=== PATIENT | female | born 1960 | race Caucasian/White ===

== ENCOUNTER → 2016-07-29 | Outpatient (CLI) | payer OTHER ==
[~2016-07-29] MED LIST: ALBU1AER9 INH; CETI10TA10 PO; CRG625 PO; CYAN10004 PO; GABA-113 PO; HYDR-4079 PO; INSDGI SC; INSUINJ14 SC; METF-384 PO; PRAV20TA PO; VLM5 PO
[2016-07-29 13:29] LABS: THYROID STIMULATING HORMONE 0.481 uIu/ml (0.300-4.500)
== END | disposition home or self-care (01) ==
LOC: C.LABPBG 08:32
PROVIDERS: ATTEND Internal Medicine Endocrinology, Diabetes & Metabolism
DX: E11.65 Type 2 diabetes mellitus with hyperglycemia (principal)

== ENCOUNTER → 2017-01-16 | Outpatient (CLI) | payer OTHER, BC ==
--- NOTE | 2017-01-16 13:21 | MAMMOGRAPHY REPORT ---
BILATERAL DIGITAL SCREENING MAMMOGRAM TOMOSYNTHESIS WITH CAD: 01/16/2017 CLINICAL HISTORY: Routine screening. Patient has no complaints. TECHNIQUE: Breast tomosynthesis in addition to standard 2D mammography was performed. Current study was also evaluated with a Computer Aided Detection (CAD) system. COMPARISON: Comparison is made to exams dated: 01/16/2016 mammogram, 12/19/2014 mammogram, 10/03/2013 jessi mogram, 09/30/2012 mammogram, 09/27/2012 mammogram, and 09/25/2011 mammogram - [facility]. BREAST COMPOSITION: There are scattered areas of fibroglandular density in both breasts. FINDINGS: No suspicious masses, calcifications, or areas of architectural distortion are noted in ei ther breast. There has been no significant interval change compared to prior exams. IMPRESSION: ACR BI-RADS CATEGORY 1: NEGATIVE There is no mammographic evidence of malignancy. A 1 year screening mammogram is recommended. The pa tient will receive written notification of the results. Approximately 10% of breast cancers are not detected with mammography. A negative mammographic report should not delay biopsy if a clinically suggestive mass is present. Gisele Vazquez M.D. ah/:01/16/2017 13:12:18 Lunchroom Supervisor: Christelle HALLMAN(Akiko)(M), [facility] letter sent: Normal 1/2 BI-RADS Code: ACR BI-RADS Category 1: Negative
== END | disposition home or self-care (01) ==
LOC: C.MAMM 09:45
PROVIDERS: ATTEND Family Medicine
DX: Z12.31 Encounter for screening mammogram for malignant neoplasm of breast (principal)

== ENCOUNTER → 2017-04-29 | Outpatient (CLI) | payer OTHER ==
[2017-04-29 12:10] LABS: ESTIMATED AVERAGE GLUCOSE 203 mg/dl; HA1C FLAG Normal (Normal)
[2017-04-29 12:22] LABS: ALT/SGPT 27 U/L (12-78); BLOOD UREA NITROGEN 15 mg/dl (7-18); BUN/CREATININE RATIO 22.9 (10-20); CALCIUM 8.8 mg/dl (8.5-10.1); CARBON DIOXIDE 24 mmol/L (21-32); CHLORIDE 104 mmol/L (98-107); CREATININE 0.65 mg/dl (0.60-1.20); GLUCOSE 298 mg/dl (70-99); SODIUM 138 mmol/L (136-145)
[2017-04-29 12:26] LABS: CHOLESTEROL 186 mg/dl (0-200); CHOLESTEROL/HDL RATIO 3.4; HDL CHOLESTEROL 55 mg/dl; LDL CHOLESTEROL CALCULATED 114 mg/dl; TRIGLYCERIDES 83 mg/dl (0-150); VERY LOW DENSITY LIPOPROT CALC 17 mg/dl
== END | disposition home or self-care (01) ==
LOC: C.LABPBG 08:21
PROVIDERS: ATTEND Family Medicine
DX: E78.5 Hyperlipidemia, unspecified (principal); I10 Essential (primary) hypertension; E11.9 Type 2 diabetes mellitus without complications

== ENCOUNTER → 2017-09-16 | Outpatient (CLI) | payer OTHER ==
[2017-09-16 13:57] LABS: HEMOGLOBIN A1C 7.7 % (4.5-5.6)
== END | disposition home or self-care (01) ==
LOC: C.LABPBG 08:28
PROVIDERS: ATTEND Family Medicine
DX: E11.9 Type 2 diabetes mellitus without complications (principal)

== ENCOUNTER → 2018-01-26 | Outpatient (CLI) | payer OTHER ==
--- NOTE | 2018-01-26 14:56 | MAMMOGRAPHY REPORT ---
BILATERAL DIGITAL SCREENING MAMMOGRAM TOMOSYNTHESIS WITH CAD: 01/26/2018 CLINICAL HISTORY: Routine screening. Patient has no complaints. TECHNIQUE: The study was acquired using full field digital technology and interpreted from soft copy. Breast tomosynthesis in addition to standard 2D mammography was performed. Current study was also ev aluated with a Computer Aided Detection (CAD) system. COMPARISON: Comparison is made to exams dated: 01/16/2017 mammogram, 01/16/2016 mammogram, 12/19/2014 mamm ogram, 10/03/2013 mammogram, 09/30/2012 mammogram, and 09/27/2012 mammogram - [facility]. BREAST COMPOSITION: There are scattered areas of fibroglandular density in both breasts. FINDINGS: There are stable nodular asymmetries in both breasts. Stable round and punctate calcificat ions bilaterally, most numerous in the left upper outer quadrant. No new suspicious mass, architectur al distortion or cluster of microcalcifications is seen. IMPRESSION: ACR BI-RADS CATEGORY 1: NEGATIVE There is no mammographic evidence of malignancy. A 1 year screening mammogram is recommended.( 019) The patient will receive written notification of the results. Some breast cancers are not detected with mammography. A negative mammographic report should not christian y biopsy if a clinically suggestive mass is present. Yamilet Connolly M.D. ay/:01/26/2018 08:19:33 Hospice Educator: RT Godfrey(Akiko)(M), [facility] letter sent: Normal 1/2 BI-RADS Code: ACR BI-RADS Category 1: Negative
== END | disposition home or self-care (01) ==
LOC: C.MAMM 07:35
PROVIDERS: ATTEND Physician Assistant
DX: Z12.31 Encounter for screening mammogram for malignant neoplasm of breast (principal)

== ENCOUNTER 2022-11-26 13:34 | Observation (INO) ==
[2022-11-26] MEDS ORDERED: ENOXAPARIN 100 MG/1ML SYR SQ ONE (14:17)
--- NOTE | 2022-11-26 14:19 | Emergency Department Note ---
Impression & Plan Pulmonary embolism, DVT (deep venous thrombosis) ED Provider Note NAME: BERTHA WEAVER AGE: 62 SEX: F : 1960 ARRIVES VIA: Walk-In INFORMANT: Patient, ED PROVIDER(S): Ron Avila DO CHIEF COMPLAINT: Pulmonary embolism HPI: The patient is a 62-year-old female who presented to the emergency department for an evaluation of pulmonary embolism. The patient had a history of an injury recently. She also had an outpatient CAT scan of her abdomen that showed some retroperitoneal lymph nodes. This was being reassessed today with outpatient CAT scans. Her outpatient CAT scan showed bilateral pulmonary embolism so she was sent to the emergency department by her primary care physician. The patient states she has no chest pain. She denies having any weakness or difficulty breathing. She denies having any near syncope. She does not have a history of venous thromboembolic disease. Patient does not take any blood thinners. She notices no headaches or GI bleeding. She states her right knee does still hurt her after an injury recently. She denies having any calf tenderness or leg swelling ROS: See above HPI for pertinent positives & negatives. A total of 10 systems reviewed and were otherwise negative. PAST MEDICAL HISTORY: See Below PAST SURGICAL HISTORY: See Below FAMILY HISTORY: See Below SOCIAL HISTORY: See Below HOME MEDICATIONS: See Below ALLERGIES: See Below VITALS: See Below PHYSICAL EXAMINATION: GENERAL: Patient is awake alert in no acute distress patient is resting comfortably and showing no signs of anxiety EYES: The conjunctivae are clear. The pupils are round and reactive. EARS, NOSE, MOUTH AND THROAT: The nose is without any evidence of any deformity. Mucous membranes are moist. Tongue is midline. NECK: The neck is nontender and supple. RESPIRATORY: Normal respiratory effort is noted there is no evidence of wheezing rhonchi or rales CARDIOVASCULAR: Regular rate and rhythm noted there no murmurs rubs or gallops normal S1 normal S2. GASTROINTESTINAL: The abdomen is soft. Abdomen is nontender. MUSCULOSKELETAL/EXTREMITIES: There is no evidence of gross deformity full range of motion is noted in the hips and shoulders. SKIN: There is no obvious evidence of any rash. There are no petechiae, pallor or cyanosis noted. NEUROLOGIC: Patient is awake alert and oriented x3 MEDICAL DECISION MAKING: The patient is a 62-year-old female who presented to the emergency department for an evaluation of pulmonary embolism that was diagnosed on an outpatient CAT scan. The patient was not tachycardic or hypoxic but she was found to have a significant clot burden on CT and was also found to have a DVT. She recently robb d an injury to her leg. She was immobilized. This is likely the cause of the DVT. The patient was started on Lovenox in the emergency department. The patient was reevaluated multiple times. [facility] have agreed to evaluate the patient in the emergency department for further management and disposition. Triage Nursing notes reviewed. Prior medical records reviewed Vital Signs: reviewed and remarkable for elevated blood pressure. Differential diagnosis: Reactive airway disease, pneumonia, pneumothorax, COPD, CHF, infections, card iac ischemia, pulmonary embolism, musculoskeletal, gastrointestinal, as well as other pathologies. ER treatment provided: See below Diagnostics interpreted by me: ECG: EKG was obtained in the emergency department. My interpretation is normal sinus rhythm at 82 bpm. There is no ectopy. Nonspecific ST depressions were noted. This was compared to a tracing from January 23, 2020. No changes were noted Cardiac Monitoring: An order was placed for continuous cardiac monitoring. The monitor shows a rate of 78 bpm with sinus rhythm. Laboratory studies: As stated above and show below. Imaging studies: See below. Radiographic imaging was reviewed by myself Consultation(s): I discussed this case with Dr. Fernandez who is [facility]. ED COURSE: Procedures: none Critical Care: I have personally spent greater than 35 minutes of critical care time in the direct management of this patient. This includes bedside care, interpretation of diagnostic studies, and testing, discussion with consultants, patient, and family members, and other required patient management activities. This 35 minutes is in excess of all separately billable procedures. Past Med/Surg History Medical History Diabetes mellitus, type 2 IDDM Diverticulosis of colon (without mention of hemorrhage) (12/11/12) Encounter for screening for malignant neoplasm of colon Encounter for screening for malignant neoplasm of rectum Goiter Headache History of difficult intubation C6 Corpectomy, C5-C7 fusion= 05/28/15= Glidescope #4, ETT 7.0 at [facility] (pt denies) HLD (hyperlipidemia) Kidney stones Leiomyoma of body of uterus (04/21/13) Multiple thyroid nodules Obesity Reactive airway disease allergy related. Right ureteral calculus Subclinical hyperthyroidism Surgical History Fusion of spine C6 CORPECTOMY, C5-C7 FUSION History of colonoscopy History of laparoscopy History of oral surgery History of repair of rotator cuff Right S/P tendon repair bicep tendon right (2019) Family History Father Diabetes Hypertension Lung disease Kidney disease Mother Hypertension Hypothyroidism Cancer small cell of the bone Brother Sleep apnea Sister No problems noted. Son Asthma Mental disorder Other Myocardial infarction No pertinent family history Denies family history of Ovarian cancer Prostate cancer Breast cancer Colorectal cancer Social History Smoking Status: Never smoker Tobacco Type: Cigarettes Age Started Using Tobacco: 16; Age Quit Using Tobacco: 40; Cigarettes Per Day: A COUPLE A DAY IF THAT; Second Hand Exposure: No; Do You Dip or Chew Tobacco: No; Hx Alcohol Use: Yes Alcohol type: beer Alcohol Intake Frequency: Monthly or Less Hx Substance Use: No Preferred Language: Hebrew Communication Ability: Effective Visual Impairment: No Limitations Hearing Ability: Normal Decorating And Assembly Supervisor Required: No Beliefs That Will Affect Care: None marital status: Current Living Situation: Family current occupational status: employed 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, [employer] How many Children do You have: 1 Other Information That Helps Us Care for You: No Feels Safe at Home: Yes Safety Concerns: Feels Safe At This Time Childhood Exposure to Second-Hand Smoke: Yes Diet: regular caffeine: Yes during the past year weight has: decreased > 10 lbs Dental Care, Regularly: Yes Physical Activity Frequency: 3-4 Times per Week Seatbelt Use: always Sunscreen Use: Yes Assistive Devices: None Allergies Allergies Allergy/AdvReac Type Severity Reaction Status Date / Time benzoin Allergy Intermediate BENZOIN Verified 11/26/22 16:59 TINCTURE-HIVES amoxicillin Allergy Unknown PRURITIS Verified 11/26/22 16:59 doxycycline AdvReac Severe severe Verified 11/26/22 16:59 nausea/vomiting oxycodone AdvReac Severe SEVERE Verified 11/26/22 16:59 NAUSEA, BONDING SUPERVISOR symptoms tetracycline AdvReac Severe DOXYCYCLINE-INTRACTABLE Verified 11/26/22 16:59 VOMITING, SEVERE ABD PAIN atorvastatin [From Lipitor] AdvReac Intermediate Myalgia Verified 11/26/22 16:59 lisinopril AdvReac Intermediate TACHYCARDIA Verified 11/26/22 16:59 Baldemar Adhesive AdvReac Unknown Itchy Uncoded 11/26/22 16:59 Home Meds Home Medications Medication Instructions Recorded Confirmed cetirizine 10 mg tablet (Zyrtec) 10 mg PO DAILY PRN SEASONAL 06/10/18 11/26/22 ALLERGIES mecobalamin (vitamin B12) 1,000 2,000 mcg PO 3XWK 12/13/19 11/26/22 mcg chewable tablet acetaminophen 650 mg 1,300 mg PO TID PRN Pain 01/05/20 11/26/22 tablet,extended release (Tylenol Arthritis Pain) meloxicam 15 mg tablet 15 mg PO DAILY PRN Pain 08/24/20 11/26/22 L.acidoph, paracasei,B. lactis 10 10 cell PO DAILY PRN Only take 09/23/21 11/26/22 billion cell capsule (Digestive when on antibiotics Advantage Advanced Probiotic) cholecalciferol (vitamin D3) 50 50 mcg PO .COMPLEX 03/03/22 11/26/22 mcg (2,000 unit) capsule tamsulosin 0.4 mg capsule 0.4 mg PO HS PRN Kidney Stones 03/03/22 11/26/22 insulin glargine 100 unit/mL (3 50 unit subcut HS 06/18/22 11/26/22 mL) subcutaneous pen (Basaglar KwikPen U-100 Insulin) Previous Rx's Medication Instructions Recorded OneTouch Delica Lancets 33 gauge #400 ea 07/26/19 (lancets) Dexcom G6 [employer] Rep (blood-glucose #1 ea 04/23/20 meter,continuous) Dexcom G6 Sensor (blood-glucose #9 ea 04/23/20 sensor) Dexcom G6 Transmitter #1 ea 04/23/20 (blood-glucose transmitter) cyclobenzaprine 10 mg tablet 10 mg PO TID PRN muscle spasm #90 06/13/20 tabs BD Ultra-Fine Natalie Pen Needle 32 #400 ea 01/07/21 gauge x 5/32" (pen needle, diabetic) OneTouch Verio test strips (blood #400 ea 01/07/21 sugar diagnostic) metformin 1,000 mg tablet 1,000 mg PO BID 90 days #180 tabs 09/23/21 hyoscyamine sulfate 0.125 mg 0.125 mg PO QID PRN abdominal pain 12/27/21 tablet (Levsin) #360 tabs lovastatin 20 mg tablet 20 mg PO 3XWK #36 tabs 06/13/22 insulin aspart U-100 100 unit/mL See Rx Instructions subcut 06/18/22 (3 mL) subcutaneous pen (Novolog .COMPLEX 90 days #6 Boxes FlexPen U-100 Insulin aspart) methimazole 5 mg tablet 10 mg PO DAILY 90 days #180 tabs 09/04/22 tirzepatide 12.5 mg/0.5 mL 12.5 mg (0.5 mL) subcut Q7D #2 mL 11/12/22 subcutaneous pen injector Results & Data (ED) Vital Signs Vital Signs - 24 hr 11/26/22 13:47 11/26/22 14:18 11/26/22 14:19 Temperature 36.6 C Temperature Source Temporal Artery Scan Pulse Rate 92 H 92 H Pulse Rate [Apical] 94 H Respiratory Rate 20 20 26 H Respiratory Effort / Characteristics Non-Labored Non-Labored Spontaneous Respiratory Depth Normal Respiratory Pattern Regular Blood Pressure 204/110 H Blood Pressure [Right Arm] 171/102 H Blood Pressure Mean 141 Blood Pressure Mean [Right Arm] 125 Blood Pressure Position [Right Arm] Semi-fowlers Pulse Oximetry 95 97 97 Oxygen Delivery Method Room Air Room Air Room Air Sepsis Recent Fever Within 48 Hours No Sepsis New/Unexplained Change in Mental Status No Sepsis Action Taken by Nursing No Action Required 11/26/22 14:24 11/26/22 14:47 Temperature Temperature Source Pulse Rate 88 Pulse Rate [Apical] Respiratory Rate Respiratory Effort / Characteristics Respiratory Depth Respiratory Pattern Blood Pressure Blood Pressure [Right Arm] 117/87 Blood Pressure Mean Blood Pressure Mean [Right Arm] 97 Blood Pressure Position [Right Arm] Semi-fowlers Pulse Oximetry Oxygen Delivery Method Sepsis Recent Fever Within 48 Hours Sepsis New/Unexplained Change in Mental Status Sepsis Action Taken by Halfway Medications Current Medication List: was personally reviewed by me Laboratory Data Attestation: I reviewed the patient's lab results. 11/26/22 14:06 11/26/22 14:06 Lab Results 11/26/22 11/26/22 11/26/22 Range/Units 14:06 14:06 14:06 WBC 6.46 (4.8-10.8) K/ul RBC 4.59 (4.20-5.40) M/uL Hgb 13.1 (12.0-16.0) g/dl Hct 38.3 (37.0-47.0) % MCV 83.4 (80.0-100.0) fL MCH 28.5 (25.0-34.0) pg MCHC 34.2 (32.0-36.0) g/dL RDW Std Deviation 38.4 (36.4-46.3) fL RDW Coeff of Claudia 12.6 (11.5-14.5) % Plt Count 211 (130-400) K/uL MPV 9.8 (9.4-12.4) fL Immature Gran % (Auto) 0.5 % Neut % (Auto) 68.8 % Lymph % (Auto) 20.1 % [place] % (Auto) 6.5 % Eos % (Auto) 3.6 % Baso % (Auto) 0.5 % Neut # (Auto) 4.45 (1.40-6.50) K/uL Lymph # (Auto) 1.30 (1.2-3.4) K/uL [place] # (Auto) 0.42 (0.11-0.59) K/uL Eos # (Auto) 0.23 (0-0.50) K/uL Baso # (Auto) 0.03 (0-0.2) K/uL Immature Gran # (Auto) 0.03 (0.01-0.20) K/uL PT 10.7 (9.0-12.0) Seconds INR 1.0 (0.9-1.1) APTT 24.2 (21.0-31.0) Seconds PTT Ratio 0.9 Sodium 137 (136-145) mmol/L Potassium 3.7 (3.5-5.1) mmol/L Chloride 102 (98-107) mmol/L Carbon Dioxide 25 (21-32) mmol/L Anion Gap 10 (3-11) BUN 14 (6-23) mg/dl Creatinine 0.64 (0.6-1.2) mg/dl Est Cr Clr Drug Dosing 101.1 ml/min Est GFR ( Amer) 112.4 ml/min Est GFR (Non-Af Amer) 97.0 ml/min BUN/Creatinine Ratio 21.9 H (10-20) Glucose 309 H* (70-99(Fasting)) mg/dl Calcium 8.6 (8.6-10.3) mg/dl Total Bilirubin 0.4 (0.2-1.0) mg/dl AST 12 L (13-39) U/L ALT 14 (7-52) U/L Alkaline Phosphatase 102 (34-104) U/L Troponin I High Sens 3.2 (0-14) pg/ml Total Protein 6.6 (6.0-8.3) gm/dl Albumin 3.9 (3.4-5.0) gm/dl Globulin 2.7 (2.5-4.0) gm/dl Albumin/Globulin Ratio 1.4 (0.9-2) Lipase 20 (11-82) U/L SARS-CoV-2, RNA, NAAT (NEGATIVE) 11/26/22 Range/Units 16:05 WBC (4.8-10.8) K/ul RBC (4.20-5.40) M/uL Hgb (12.0-16.0) g/dl Hct (37.0-47.0) % MCV (80.0-100.0) fL MCH (25.0-34.0) pg MCHC (32.0-36.0) g/dL RDW Std Deviation (36.4-46.3) fL RDW Coeff of Claudia (11.5-14.5) % Plt Count (130-400) K/uL MPV (9.4-12.4) fL Immature Gran % (Auto) % Neut % (Auto) % Lymph % (Auto) % [place] % (Auto) % Eos % (Auto) % Baso % (Auto) % Neut # (Auto) (1.40-6.50) K/uL Lymph # (Auto) (1.2-3.4) K/uL [place] # (Auto) (0.11-0.59) K/uL Eos # (Auto) (0-0.50) K/uL Baso # (Auto) (0-0.2) K/uL Immature Gran # (Auto) (0.01-0.20) K/uL PT (9.0-12.0) Seconds INR (0.9-1.1) APTT (21.0-31.0) Seconds PTT Ratio Sodium (136-145) mmol/L Potassium (3.5-5.1) mmol/L Chloride (98-107) mmol/L Carbon Dioxide (21-32) mmol/L Anion Gap (3-11) BUN (6-23) mg/dl Creatinine (0.6-1.2) mg/dl Est Cr Clr Drug Dosing ml/min Est GFR ( Amer) ml/min Est GFR (Non-Af Amer) ml/min BUN/Creatinine Ratio (10-20) Glucose (70-99(Fasting)) mg/dl Calcium (8.6-10.3) mg/dl Total Bilirubin (0.2-1.0) mg/dl AST (13-39) U/L ALT (7-52) U/L Alkaline Phosphatase (34-104) U/L Troponin I High Sens (0-14) pg/ml Total Protein (6.0-8.3) gm/dl Albumin (3.4-5.0) gm/dl Globulin (2.5-4.0) gm/dl Albumin/Globulin Ratio (0.9-2) Lipase (11-82) U/L SARS-CoV-2, RNA, NAAT NEGATIVE (NEGATIVE) Administered Medications Discontinued Medications Enoxaparin Sodium (Enoxaparin 100 Mg/1ml Syr) 100 mg SQ NOW ONE Stop: 11/26/22 14:18 Last Admin: 11/26/22 14:24 Dose: 100 mg Documented By: Insulin Aspart (Insulin Aspart Per Unit Charge) 4 units SC NOW STA Stop: 11/26/22 17:14 Last Admin: 11/26/22 17:19 Dose: 4 units Documented By: Co-signed By: [facility] Imaging Data Radiologist's Impression: Venous Doppler Study 11/26/22 14:01 BILATERAL LOWER EXTREMITY VENOUS DOPPLER CLINICAL HISTORY: Pulmonary emboli. COMPARISON STUDY: No previous studies for comparison. TECHNIQUE: Sonography of the deep venous system of the bilateral lower extremities was performed. Compression and augmentation were evaluated. FINDINGS: Note is made of deep venous thrombus within one of 2 paired right peroneal veins. No additional sites of deep venous thrombus within the lower extremities are identified. IMPRESSION: Deep venous thrombus within one of 2 paired right peroneal veins. No additional sites of deep venous thrombus within the lower extremities. ACT 112: Negative or not required by law. Electronically signed by: Rivas Mariee M.D. 11/26/2022 3:33 PM Discharge Plan Visit Data Chief Complaint: Referred by Doctor Stated Complaint: CAT SCAN, BLOOD CLOTS IN LUNGS, REF BY DOC ED Provider: Ron Avila Discharge Problem: Pulmonary embolism, DVT (deep venous thrombosis) Patient Disposition: Admitted As Inpatient Discharge Instructions Interventions: ED Discharge Assessment Last Done: 11/26/22 18:37 Pulmonary embolism Qualifiers: Pulmonary embolism type: unspecified Chronicity: acute Acute cor pulmonale presence: unspecified Qualified Code(s): I26.99 - Other pulmonary embolism without acute cor pulmonale DVT (deep venous thrombosis) Qualifiers: DVT location: lower extremity Affected thrombotic vein of extremity: tibial Chronicity: acute Laterality: right Qualified Code(s): I82.441 - Acute embolism and thrombosis of right tibial vein
[2022-11-26 14:45] LABS: Basophils # (auto) 0.03 K/uL (0-0.2); Basophils % (auto) 0.5 %; Eosinophils # (auto) 0.23 K/uL (0-0.50); Eosinophils % (auto) 3.6 %; Hematocrit (blood only) 38.3 % (37.0-47.0); Hemoglobin 13.1 g/dl (12.0-16.0); Immature Granulocytes # (auto) 0.03 K/uL (0.01-0.20); Immature Granulocytes % (auto) 0.5 %; Lymphocytes % (auto) 20.1 %; Mean Corpuscular Hemoglobin 28.5 pg (25.0-34.0); Mean Corpuscular Hgb Conc 34.2 g/dL (32.0-36.0); Mean Corpuscular Volume 83.4 fL (80.0-100.0); Mean Platelet Volume 9.8 fL (9.4-12.4); Monocytes # (auto) 0.42 K/uL (0.11-0.59); Monocytes % (auto) 6.5 %; Neutrophils # (auto) 4.45 K/uL (1.40-6.50); Neutrophils % (auto) 68.8 %; Platelet Count 211 K/uL (130-400); RDW Coefficient of Variation 12.6 % (11.5-14.5); RDW Standard Deviation 38.4 fL (36.4-46.3); Red Blood Count 4.59 M/uL (4.20-5.40); White Blood Count 6.46 K/ul (4.8-10.8)
[2022-11-26 15:07] LABS: Albumin Globulin Ratio 1.4 (0.9-2); Albumin Level 3.9 gm/dl (3.4-5.0); BUN Creatinine Ratio 21.9 (10-20); Bilirubin,Total 0.4 mg/dl (0.2-1.0); Calcium 8.6 mg/dl (8.6-10.3); Creatinine Clr Calc Pharmacy 101.1 ml/min; Est GFR (African American) 112.4 ml/min; Globulin 2.7 gm/dl (2.5-4.0); Potassium 3.7 mmol/L (3.5-5.1); Total Protein 6.6 gm/dl (6.0-8.3); Troponin I High Sensitivity 3.2 pg/ml (0-14)
[2022-11-26 15:15] LABS: Partial Thromboplastin Ratio 0.9; Partial Thromboplastin Time 24.2 Seconds (21.0-31.0); Prothrombin Time 10.7 Seconds (9.0-12.0)
--- NOTE | 2022-11-26 15:34 | Ultrasound Report ---
BILATERAL LOWER EXTREMITY VENOUS DOPPLER CLINICAL HISTORY: Pulmonary emboli. COMPARISON STUDY: No previous studies for comparison. TECHNIQUE: Sonography of the deep venous system of the bilateral lower extremities was performed. Co mpression and augmentation were evaluated. FINDINGS: Note is made of deep venous thrombus within one of 2 paired right peroneal veins. No additi onal sites of deep venous thrombus within the lower extremities are identified. IMPRESSION: Deep venous thrombus within one of 2 paired right peroneal veins. No additional sites of deep venous thrombus within the lower extremities. ACT 112: Negative or not required by law. Electronically signed by: Rivas Mariee M.D. 11/26/2022 3:33 PM
--- NOTE | 2022-11-26 17:08 | History & Physical Report ---
Date of Service November 26, 2022 Assessment & Plan (1) Pulmonary emboli: Plan: with associated DVT on right side suggesting provoked from recent knee injury and decreased mobilization. Minimal provocation and significant clot burden would favor 6 rather than 3 months of anticoagulation Lovenox started in the ER. Will give next dose tomorrow morning. Switch to oral anticoagulation starter pack on discharge. Hold meloxicam while on anticogulation (2) Diabetes mellitus, type 2: Plan: Hemoglobin A1C 6.2. Switch Basaglar to Lantus 50 units HS due to hospital formulary Continue usual Novolog carb ratio 3 and correction factor 25 as outpatient Hold metformin for 48 hours due to IV contrast Plan VTE Prophylaxis - Lovenox Diet - patient requesting regular rather than T2DM diet Disposition - observation on med/tele Admission and Anticipated Discharge Date Admission Date: November 26, 2022 History of Present Illness Primary Care Provider: Elizabeth Le MD Oliver Person is a 62 year old female who presents to the ER due to incidental finding of bilateral moderate pulmonary emboli noted on routine outpatient CT for follow up of lymphadenopathy. She denies any chest pain, shortness of breath or calf pain. No recent long haul journeys or surgeries. No personal or family history of PE or DVT. She notes having a knee injury 2 weeks ago and has had reduced mobility on her right leg since with using crutches for walking initially and now partial weight bearing. She has not been in a cast. Allergies Allergy/AdvReac Type Severity Reaction Status Date / Time benzoin Allergy Intermediate BENZOIN Verified 11/26/22 16:59 TINCTURE-HIVES amoxicillin Allergy Unknown PRURITIS Verified 11/26/22 16:59 doxycycline AdvReac Severe severe Verified 11/26/22 16:59 nausea/vomiting oxycodone AdvReac Severe SEVERE Verified 11/26/22 16:59 NAUSEA, SOUND EFFECTS MANAGER symptoms tetracycline AdvReac Severe DOXYCYCLINE-INTRACTABLE Verified 11/26/22 16:59 VOMITING, SEVERE ABD PAIN atorvastatin [From Lipitor] AdvReac Intermediate Myalgia Verified 11/26/22 16:59 lisinopril AdvReac Intermediate TACHYCARDIA Verified 11/26/22 16:59 Baldemar Adhesive AdvReac Unknown Itchy Uncoded 11/26/22 16:59 Home Medications Medication Instructions Recorded Confirmed Type cetirizine 10 mg tablet (Zyrtec) 10 mg PO DAILY PRN SEASONAL 06/10/18 11/26/22 History ALLERGIES OneTouch Delica Lancets 33 gauge #400 ea 07/26/19 07/30/22 Rx (lancets) mecobalamin (vitamin B12) 1,000 2,000 mcg PO 3XWK 12/13/19 11/26/22 History mcg chewable tablet acetaminophen 650 mg 1,300 mg PO TID PRN Pain 01/05/20 11/26/22 History tablet,extended release (Tylenol Arthritis Pain) Dexcom G6 Bottom Turning Lathe Tender (blood-glucose #1 ea 04/23/20 07/30/22 Rx meter,continuous) Dexcom G6 Sensor (blood-glucose #9 ea 04/23/20 07/30/22 Rx sensor) Dexcom G6 Transmitter #1 ea 04/23/20 07/30/22 Rx (blood-glucose transmitter) cyclobenzaprine 10 mg tablet 10 mg PO TID PRN muscle spasm #90 06/13/20 11/26/22 Rx tabs meloxicam 15 mg tablet 15 mg PO DAILY PRN Pain 08/24/20 11/26/22 History BD Ultra-Fine Natalie Pen Needle 32 #400 ea 01/07/21 07/30/22 Rx gauge x 5/32" (pen needle, diabetic) OneTouch Verio test strips (blood #400 ea 01/07/21 11/26/22 Rx sugar diagnostic) L.acidoph, paracasei,B. lactis 10 10 cell PO DAILY PRN Only take 09/23/21 11/26/22 History billion cell capsule (Digestive when on antibiotics Advantage Advanced Probiotic) metformin 1,000 mg tablet 1,000 mg PO BID 90 days #180 tabs 09/23/21 11/26/22 Rx hyoscyamine sulfate 0.125 mg 0.125 mg PO QID PRN abdominal pain 12/27/21 11/26/22 Rx tablet (Levsin) #360 tabs cholecalciferol (vitamin D3) 50 50 mcg PO .COMPLEX 03/03/22 11/26/22 History mcg (2,000 unit) capsule tamsulosin 0.4 mg capsule 0.4 mg PO HS PRN Kidney Stones 03/03/22 11/26/22 History lovastatin 20 mg tablet 20 mg PO 3XWK #36 tabs 06/13/22 11/26/22 Rx insulin aspart U-100 100 unit/mL See Rx Instructions subcut 06/18/22 11/26/22 Rx (3 mL) subcutaneous pen (Novolog .COMPLEX 90 days #6 Boxes FlexPen U-100 Insulin aspart) insulin glargine 100 unit/mL (3 50 unit subcut HS 06/18/22 11/26/22 History mL) subcutaneous pen (Basaglar KwikPen U-100 Insulin) methimazole 5 mg tablet 10 mg PO DAILY 90 days #180 tabs 09/04/22 11/26/22 Rx tirzepatide 12.5 mg/0.5 mL 12.5 mg (0.5 mL) subcut Q7D #2 mL 11/12/22 11/26/22 Rx subcutaneous pen injector Past Med/Surg History Medical History Diabetes mellitus, type 2 IDDM Diverticulosis of colon (without mention of hemorrhage) (12/11/12) Encounter for screening for malignant neoplasm of colon Encounter for screening for malignant neoplasm of rectum Goiter Headache History of difficult intubation C6 Corpectomy, C5-C7 fusion= 05/28/15= Glidescope #4, ETT 7.0 at [facility] (pt denies) HLD (hyperlipidemia) Kidney stones Leiomyoma of body of uterus (04/21/13) Multiple thyroid nodules Obesity Reactive airway disease allergy related. Right ureteral calculus Subclinical hyperthyroidism Surgical History Fusion of spine C6 CORPECTOMY, C5-C7 FUSION History of colonoscopy History of laparoscopy History of oral surgery History of repair of rotator cuff Right S/P tendon repair bicep tendon right (2019) Family History Father Diabetes Hypertension Lung disease Kidney disease Mother Hypertension Hypothyroidism Cancer small cell of the bone Brother Sleep apnea Sister No problems noted. Son Asthma Mental disorder Other Myocardial infarction No pertinent family history Denies family history of Ovarian cancer Prostate cancer Breast cancer Colorectal cancer Social History Smoking Status: Never smoker Tobacco Type: Cigarettes Age Started Using Tobacco: 16; Age Quit Using Tobacco: 40; Cigarettes Per Day: A COUPLE A DAY IF THAT; Second Hand Exposure: No; Do You Dip or Chew Tobacco: No; Hx Alcohol Use: Yes Alcohol type: beer Alcohol Intake Frequency: Monthly or Less Hx Substance Use: No Preferred Language: Mexican Communication Ability: Effective Visual Impairment: No Limitations Hearing Ability: Normal Advisory Internship Required: No Beliefs That Will Affect Care: None marital status: Current Living Situation: Family current occupational status: employed current occupation: [employer], [place] [employer] [facility] How many Children do You have: 1 Other Information That Helps Us Care for You: No Feels Safe at Home: Yes Safety Concerns: Feels Safe At This Time Childhood Exposure to Second-Hand Smoke: Yes Diet: regular caffeine: Yes during the past year weight has: decreased > 10 lbs Dental Care, Regularly: Yes Physical Activity Frequency: 3-4 Times per Week Seatbelt Use: always Sunscreen Use: Yes Assistive Devices: None Review of Systems Review of Systems: All systems reviewed & are unremarkable except as noted in HPI & below Physical Exam Constitutional: WD/WN, vitals as above Eyes: + anicteric sclerae; normal pupil size Respiratory: normal respiratory effort, lungs clear to auscultation Cardiovascular: RRR, no murmur, no edema Gastrointestinal (Abdomen): normal bowel sounds, soft, nontender, no hepatosplenomegaly Neurologic: moves all extremities and awake; not confused Psychiatric: A+Ox3, euthymic affect Results & Data Results & Data Vital Signs (Past 12 Hours) Vital Signs Temp Pulse Pulse Resp BP BP Pulse Ox 11/26/22 14:47 117/87 11/26/22 14:24 88 11/26/22 14:19 94 H 26 H 171/102 H 97 11/26/22 14:18 92 H 20 97 11/26/22 13:47 36.6 C 92 H 20 204/110 H 95 O2 Del Method 11/26/22 14:47 11/26/22 14:24 11/26/22 14:19 Room Air 11/26/22 14:18 Room Air 11/26/22 13:47 Room Air Laboratory Results Abnormal lab results 11/26/22 Range/Units 14:06 BUN/Creatinine Ratio 21.9 H (10-20) Glucose 309 H* (70-99(Fasting)) mg/dl AST 12 L (13-39) U/L Diagnostic Findings BILATERAL LOWER EXTREMITY VENOUS DOPPLER CLINICAL HISTORY: Pulmonary emboli. COMPARISON STUDY: No previous studies for comparison. TECHNIQUE: Sonography of the deep venous system of the bilateral lower extremities was performed. Compression and augmentation were evaluated. FINDINGS: Note is made of deep venous thrombus within one of 2 paired right peroneal veins. No additional sites of deep venous thrombus within the lower extremities are identified. IMPRESSION: Deep venous thrombus within one of 2 paired right peroneal veins. No additional sites of deep venous thrombus within the lower extremities. Medications Administered ER Medications Given: Lovenox 100 mg SQ ECG Rate (beats per minute): 82 Rhythm: normal sinus Findings: no acute ischemic change Comparison ECG Date: from (January 23, 2020) Change: the following changes noted (inferior q waves present) Code Status & VTE Plan Code Status Full VTE Prophylaxis Plan VTE Prophylaxis will be ordered: Yes PG Care Time/CCT Total # of Minutes Spent Total Time Spent with Patient: Total time spent is greater than 50% in coordination of care (as documented) at patient's floor/unit and/or counseling patient: Coding Level of Care Code 51153 INT INP/OBS CARE 2/55MIN Diagnoses Pulmonary emboli I26.99 Diabetes mellitus, type 2 E11.9; Z79.4 Diabetes mellitus complication status: without complication Diabetes mellitus alf insulin use: with equipment operator intermodal yard use (2) Diabetes mellitus, type 2 Diabetes mellitus complication status: without complication Diabetes mellitus equipment operator intermodal yard insulin use: with equipment operator intermodal yard use Qualified Code(s): E11.9 - Type 2 diabetes mellitus without complications; Z79.4 - long-term (current) use of insulin
[2022-11-26] MEDS ORDERED: INSULIN ASPART PER UNIT CHARGE SC STA (17:13)
[2022-11-26] MEDS ORDERED: DEXTROSE 50% 50 ML SYRINGE IV PRN (18:54)
[2022-11-26] MEDS ORDERED: HYOSCYAMINE SULFATE 0.125 MG TAB PO PRN (18:54)
[2022-11-26] MEDS ORDERED: GLUCOSE 40% GEL 15 GM TUBE PO PRN (18:54)
[2022-11-26] MEDS ORDERED: GLUCAGON FOR INJ 1 MG VIAL SQ PRN (18:54)
[2022-11-26] MEDS ORDERED: GLUCOSE 10 TAB/TUBE PO PRN (18:54)
[2022-11-26] MEDS ORDERED: CARBOHYDRATES FOR HYPOGLYCEMIA PO PRN (18:54)
[2022-11-26] MEDS: INSULIN ASPART PER UNIT CHARGE SC SCH (20:54)
[2022-11-26] MEDS ORDERED: LOVASTATIN 20 MG TAB PO SCH (21:00)
[2022-11-26] MEDS ORDERED: LANTUS PER UNIT CHARGE SQ SCH (21:00)
[2022-11-26] MEDS: ACETAMINOPHEN 325 MG TAB PO PRN (22:53)
[2022-11-27] MEDS ORDERED: ENOXAPARIN 100 MG/1ML SYR SQ SCH (06:00)
[2022-11-27] MEDS: ACETAMINOPHEN 325 MG TAB PO PRN (06:28)
[2022-11-27 06:58] LABS: Hematocrit (blood only) 39.6 % (37.0-47.0); Hemoglobin 13.3 g/dl (12.0-16.0); Mean Corpuscular Hemoglobin 28.1 pg (25.0-34.0); Mean Corpuscular Hgb Conc 33.6 g/dL (32.0-36.0); Mean Corpuscular Volume 83.5 fL (80.0-100.0); Mean Platelet Volume 9.6 fL (9.4-12.4); Platelet Count 221 K/uL (130-400); RDW Coefficient of Variation 12.6 % (11.5-14.5); RDW Standard Deviation 38.1 fL (36.4-46.3); Red Blood Count 4.74 M/uL (4.20-5.40)
[2022-11-27 07:09] LABS: BUN Creatinine Ratio 20.3 (10-20); Calcium 9.2 mg/dl (8.6-10.3); Creatinine Clr Calc Pharmacy 108.7 ml/min; Est GFR (African American) 115.5 ml/min; Est GFR (Non-African American) 99.6 ml/min; Potassium 4.1 mmol/L (3.5-5.1)
[2022-11-27 08:45] VITALS: O2SAT 96
[2022-11-27] MEDS: INSULIN ASPART PER UNIT CHARGE SC SCH ×2 (08:48→12:08)
[2022-11-27] MEDS ORDERED: methIMAzole 5 MG TABLET PO SCH (09:00)
[2022-11-27 12:01] VITALS: TEMP 98.1
--- NOTE | 2022-11-27 12:02 | Discharge Summary ---
Date of Service November 27, 2022 Admission HPI Per Admitting Provider Oliver Person is a 62 year old female who presents to the ER due to incidental finding of bilateral moderate pulmonary emboli noted on routine outpatient CT for follow up of lymphadenopathy. She denies any chest pain, shortness of breath or calf pain. No recent long haul journeys or surgeries. No personal or family history of PE or DVT. She notes having a knee injury 2 weeks ago and has had reduced mobility on her right leg since with using crutches for walking initially and now partial weight bearing. She has not been in a cast. Principal Diagnosis Bilateral pulmonary emboli, right lower extremity DVT Discharge Exam General-alert and oriented x3, no fevers, no chills HEENT-head atraumatic and normocephalic, pupils equal and reactive to light, extraocular muscles intact Neck-no lymphadenopathy or thyromegaly, trachea midline Chest-clear to auscultation percussion. No rales wheezing or rhonchi Cardiac-regular rate and rhythm, normal S1 and S2 Abdomen-normal bowel sounds, nontender, no hepatosplenomegaly Extremities-no cyanosis, clubbing, or edema Neuro-cranial nerves II through XII intact, motor and sensory function within normal limits, strength symmetrical Discharge Data Allergies Allergy/AdvReac Type Severity Reaction Status Date / Time benzoin Allergy Intermediate BENZOIN Verified 11/26/22 16:59 TINCTURE-HIVES amoxicillin Allergy Unknown PRURITIS Verified 11/26/22 16:59 doxycycline AdvReac Severe severe Verified 11/26/22 16:59 nausea/vomiting oxycodone AdvReac Severe SEVERE Verified 11/26/22 16:59 NAUSEA, ENTERPRISE ACCOUNT EXECUTIVE symptoms tetracycline AdvReac Severe DOXYCYCLINE-INTRACTABLE Verified 11/26/22 16:59 VOMITING, SEVERE ABD PAIN atorvastatin [From Lipitor] AdvReac Intermediate Myalgia Verified 11/26/22 16:59 lisinopril AdvReac Intermediate TACHYCARDIA Verified 11/26/22 16:59 Baldemar Adhesive AdvReac Unknown Itchy Uncoded 11/26/22 16:59 Consultations 11/26/22 16:18 ED Decision to Admit Stat Ordered Studies 11/26/22 14:01 US venous doppler LE BI Stat Hospital Course (1) Pulmonary emboli: Bilateral. Right lower extremity DVT is likely source. Treated with Lovenox 1 mg/kg subcutaneously every 12 hours while hospitalized. She will be discharged home on Eliquis 10 mg twice a day for 1 week then 5 mg twice a day thereafter. Hold meloxicam while on anticogulation (2) Diabetes mellitus, type 2: Hemoglobin A1C 6.2. ADA diet. Continue insulin glargine. Sliding scale coverage as needed. Will resume metformin at discharge. Plan VTE Prophylaxis - Lovenox Diet - patient requesting regular rather than T2DM diet Disposition -Home today, November 27, on Eliquis Total Time Total Time Spent Total Time Spent (In Minutes): 40 minutes Discharge Plan Discharge Items Patient Disposition: Home - Self-Care Reason For Visit: PULMONARY EMBOLI Discharge Diagnosis: Right lower extremity DVT, bilateral pulmonary emboli Activity: Resume your previous activity Non-emergency contact: Primary Care Provider Call non-emergency contact if: your symptoms worsen Follow-up/Referrals: Elizabeth Le MD [Primary Care Provider] - Diet: Carb Consistent or DM2 Addtl Attending Provider Instructions: Take Eliquis 10 mg twice daily for 1 week then decrease dose to 5 mg twice daily going forward Pending Studies at Discharge: No Stand-Alone Forms: My [employer], Work/School Release, Smoking Cessation Medications and DC Order Prescriptions: New Eliquis 5 mg tablet See Rx Instructions .ROUTE .COMPLEX Qty: 30 0RF Rx Instructions: Take 10 mg twice daily for 1 week then 5 mg twice daily thereafter Continued hyoscyamine sulfate [Levsin] 0.125 mg tablet 0.125 mg PO QID PRN (Reason: abdominal pain) Qty: 360 2RF lovastatin 20 mg tablet 20 mg PO 3XWK Qty: 36 1RF Rx Instructions: takes on thu/thu/fridays methimazole 5 mg tablet 10 mg PO DAILY 90 Days Qty: 180 0RF tirzepatide 12.5 mg/0.5 mL pen injector 12.5 mg subcut Q7D Qty: 2 2RF Rx Instructions: Thursday mecobalamin (vitamin B12) 1,000 mcg tablet,chewable 2,000 mcg PO 3XWK Rx Instructions: takes on thu/thu/fridays (DME) lancets [OneTouch Delica Lancets] 33 gauge misc See Rx Instructions .ROUTE .MEDSUPPLY Qty: 400 3RF Rx Instructions: test 4 times daily (DME) Dexcom G6 Life Insurance Underwriter Misc See Rx Instructions .MEDSUPPLY Qty: 1 0RF Rx Instructions: For use with Dexcom G6 transmitter and sensors (DME) Dexcom G6 Sensor Device See Rx Instructions .MEDSUPPLY Qty: 9 4RF Rx Instructions: Use as directed for continuous glucose monitoring - Change sensor every 10 days (DME) Dexcom G6 Transmitter Device See Rx Instructions .MEDSUPPLY Qty: 1 3RF Rx Instructions: Use as directed for continuous glucose monitoring - change every 90 days cholecalciferol (vitamin D3) 50 mcg (2,000 unit) capsule 50 mcg PO .COMPLEX Rx Instructions: 50 mcg orally three times a week; M/W/F tamsulosin 0.4 mg capsule 0.4 mg PO HS PRN (Reason: Kidney Stones) cyclobenzaprine 10 mg tablet 10 mg PO TID PRN (Reason: muscle spasm) Qty: 90 0RF Digestive Advantage Advanced 10 billion cell capsule 10 cell PO DAILY PRN (Reason: Only take when on antibiotics) (DME) pen needle, diabetic [BD Ultra-Fine Natalie Pen Needle] 32 gauge x 5/32" needle See Rx Instructions .ROUTE .MEDSUPPLY Qty: 400 3RF Rx Instructions: use 4 needles daily (DME) OneTouch Verio test strips Strip See Rx Instructions .ROUTE .MEDSUPPLY Qty: 400 3RF Rx Instructions: check blood sugar 4 x daily metformin 1,000 mg tablet 1,000 mg PO BID 90 Days Qty: 180 3RF Basaglar KwikPen U-100 Insulin 100 unit/mL (3 mL) insulin pen 50 unit SUBCUT HS insulin aspart U-100 [Novolog FlexPen U-100 Insulin] 100 unit/mL (3 mL) insulin pen See Rx Instructions subcut .COMPLEX 90 Days Qty: 6 3RF Rx Instructions: 1 u for every 3 grams of carbohydrate plus slidiing subcutaneously before meals; total daily dose 65 u; acetaminophen [Tylenol Arthritis Pain] 650 mg Tablet Extended Release 1,300 mg PO TID PRN (Reason: Pain) cetirizine [Zyrtec] 10 mg Tablet 10 mg PO DAILY PRN (Reason: SEASONAL ALLERGIES) Discontinued meloxicam 15 mg tablet 15 mg PO DAILY PRN (Reason: Pain) Discharge Orders: Discharge Order (Routine); Ordered 11/27/22 Ordered By: Felice Price Admission Data Admit Date/Time: 11/26/22 16:42 Attending Provider: Felice Price Admit Provider: Philipp Fernandez Primary Care Provider: Elizabeth Le Other Providers: Philipp Fernandez Coding Level of Care Code 12547 INP/OBS DISCH >30 MIN Diagnoses Pulmonary emboli I26.99 Diabetes mellitus, type 2 E11.9; Z79.4 Diabetes mellitus chcf insulin use: with chcf use Diabetes mellitus complication status: without complication
[2022-11-27 13:11] VITALS: BP 135/75; PULSE 75
[2022-11-27] MEDS ORDERED: APIXABAN 5 MG TABLET PO SCH (17:00)
--- NOTE | 2022-11-27 18:53 | Electrocardiogram Report ---
Test Reason : Blood Pressure : / mmHG Vent. Rate : 082 BPM Atrial Rate : 082 BPM P-R Int : 158 ms QRS Dur : 086 ms QT Int : 396 ms P-R-T Axes : 034 -29 018 degrees QTc Int : 462 ms Normal sinus rhythm Minimal voltage criteria for LVH, may be normal variant possible Inferior infarct , age undetermined atypical incomplete right bundle branch block Abnormal ECG When compared with ECG of 23-JAN-2020 10:44, Inferior infarct is now Present Confirmed by Cristobal Escamilla ([id number]) on 11/27/2022 6:53:33 PM Referred By: REFERRED SELF Confirmed By:Gage Escamilla
== END 2022-11-27 13:55 | disposition home or self-care (01) ==
LOC: ED 13:34 → 2N 13:34 → SUATTDRO 16:42 → 2N 18:37